=== PATIENT | female | born 1985 | race Asian ===

== ENCOUNTER 2017-05-19 21:47 | Emergency (ER) | payer BC | END 2017-05-19 22:48 | disposition left against medical advice (07) | LOC: ED 21:47 | DX: Z53.21 Procedure and treatment not carried out due to patient leaving prior to being seen by health care provider (principal) ==

== ENCOUNTER 2017-06-23 23:54 | Emergency (ER) | payer BC | END 2017-06-24 00:29 | disposition left against medical advice (07) | LOC: ED 23:54 | DX: Z53.21 Procedure and treatment not carried out due to patient leaving prior to being seen by health care provider (principal) ==

== ENCOUNTER 2017-06-24 03:03 | Emergency (ER) | payer BC ==
[~2017-06-24] VITALS: Ht 162.6 cm; Wt 75.3 kg
[2017-06-24 03:10] VITALS: Ht 162.6 cm; Wt 75.3 kg
[2017-06-24 04:59] VITALS: BP 116/72
== END 2017-06-24 04:59 | disposition home or self-care (01) ==
LOC: ED 03:03
DX: O26.892 Other specified pregnancy related conditions, second trimester (principal); R10.13 Epigastric pain; Z3A.00 Weeks of gestation of pregnancy not specified
CPT/HCPCS: J0500